=== PATIENT | male | born 1975 | race Two or more races ===

== ENCOUNTER 2017-11-23 14:06 | Emergency (ER) | payer SELFPAY ==
[~2017-11-23] VITALS: Ht 172.7 cm; Wt 74.8 kg
[2017-11-23 14:11] VITALS: BP 162/98
--- NOTE | 2017-11-23 14:17 | Emergency Room Report ---
History of Present Illness General Chief Complaint: Medication Refill Source: EMS Present Illness HPI 42-year-old male patient presents ER questing medication refill for lithium. Patient reports a history of bipolar disorder. Patient reports that he has been taking lithium for "quite some time." Patient reports he takes lithium 100 mg once a day. Patient denies thoughts of suicide or homicidal ideation. Patient denies chest pain, shortness of breath, fever, abdominal pain. Allergies: Coded Allergies: No Known Allergies (Unverified , 11/23/17) Patient History Past Medical History: see triage record Reviewed Nursing Documentation: PMH: Agreed; PSxH: Agreed Nursing Documentation-PMH Past Medical History: No History, Except For History Of Psychiatric Problem: Yes - BIPOLAR Review of Systems All Other Systems: negative except mentioned in HPI Physical Exam Vital Signs Date Time Temp Pulse Resp B/P (MAP) Pulse Ox O2 Delivery O2 Flow Rate FiO2 11/23/17 14:02 97.7 96 20 162/98 98 Room Air 97.7 Sp02 EP Interpretation: reviewed, normal General Appearance: well appearing, no apparent distress, alert, GCS 15, non- toxic Head: normocephalic, atraumatic Eyes: bilateral eye normal inspection, bilateral eye PERRL ENT: hearing grossly normal, normal pharynx, no angioedema, normal voice, uvula midline, moist mucus membranes Neck: full range of motion Respiratory: lungs clear, normal breath sounds, no rhonchi, no respiratory distress, no accessory muscle use, no wheezing, speaking full sentences Cardiovascular #1: regular rate, rhythm, no edema Musculoskeletal: back normal, digits/nails normal, gait/station normal, normal range of motion, non-tender Neurologic: alert, oriented x3, responsive, motor strength/tone normal, sensory intact Psychiatric: mood/affect normal, no suicidal/homicidal ideation Skin: no rash Medical Decision Making PA Attestation Dr. De is my supervising Physician whom patient management has been discussed with. Diagnostic Impression: Primary Impression: Encounter for medication refill ER Course Pt. presents to the ED requesting prescription refill. Multiple differentials were considered. Vital signs: are WNL, pt. is afebrile. BP mildly elevated, patient denies acute complaints in the ER, does not require intervention at this time. Follow-up with primary care provider for further diagnosis treatment. ORDERS: PE benign, lungs clear to auscultation. Consult with Dr. Santino singh to provide temporary medication refill. Informed patient will provide medication refill for 5 days. Patient is to follow-up with psychiatrist for penitentiary treatment and management of bipolar disorder and symptoms. Do not believe patient is danger to himself or others. Denies suicidal or homicidal ideation. Informed patient ER cannot provide refills in the future; followup, management and prescription of long-term medications must be performed by primary care provider. Patient nontoxic appearing, walking talking and smiling without difficulty. Patient okay for discharge to home DISCHARGE: Rx provided for [place], #5 At this time pt is stable for d/c to home. Patient is resting comfortably, in no acute distress, nontoxic appearing, talking without difficulty. Patient to take medications as instructed Will provide with patient care instructions and any necessary prescriptions. Care plan and follow-up instructions provided. Patient instructed to follow-up with primary care provider in 3 - 5 days. Patient questions asked and answered. Patient reports understanding and agreement to treatment plan. ER precautions given. Patient instructed to return to ER immediately for any new or worsening of symptoms including but not limited to increasing SOB, persistent fever. Last Vital Signs Date Time Temp Pulse Resp B/P (MAP) Pulse Ox O2 Delivery O2 Flow Rate FiO2 11/23/17 14:02 97.7 96 20 162/98 98 Room Air 97.7 Disposition: HOME, SELF-CARE Condition: Stable Scripts [place] Carbonate* (LITHIUM*) 150 Mg Capsule 100 MG ORAL DAILY for 5 Days, #5 CAP 0 Refills Prov: Maxim Fletcher 11/23/17 Patient Instructions: Medicine Refill at the Emergency Department Additional Instructions: Followup with primary care provider in 3 -5 days. Take medications as directed. Patient questions asked and answered. ER precautions given, patient instructed to return to ER immediately for any new or worsening of symptoms. Maxim Fletcher Nov 23, 2017 14:17
[2017-11-23] MEDS ORDERED: LITHIUM CARBON150 MG ORAL (14:22)
[2017-11-23 14:23] VITALS: BP 162/98
== END 2017-11-23 14:23 | disposition home or self-care (01) ==
LOC: EDBD 14:06 → EMR 14:15
DX: Z76.0 Encounter for issue of repeat prescription (principal); F31.9 Bipolar disorder, unspecified
CPT/HCPCS: 99283